=== PATIENT | female | born 1980 | race Caucasian/White ===

== ENCOUNTER 2017-11-28 18:56 | Emergency (ER) | payer OTHER ==
[~2017-11-28] VITALS: Ht 180.3 cm; Wt 113.4 kg
[~2017-11-28 18:56] MED LIST: ACETAMINOPHEN-1 EAC1 PO; BACTRIM DS TAB1 EACH PO; BIRTH CONTROL; CELEXA 10 MG TA10 M1 PO; CELEXA40 MG PO; FLEXERIL PO; NORCO 5-325 TA1 EACH PO
[2017-11-28] MEDS ORDERED: NAPROSYN500 MG PO (20:41)
[2017-11-28 20:53] VITALS: BP 174/100
== END 2017-11-28 20:54 | disposition home or self-care (01) ==
LOC: M.ERS 18:56
DX: M79.672 Pain in left foot (principal)

== ENCOUNTER 2018-07-16 22:36 | Emergency (ER) | payer OTHER ==
[~2018-07-16] VITALS: Ht 182.9 cm; Wt 113.4 kg
[~2018-07-16 22:36] MED LIST changes: +NAPROSYN500 MG PO
[2018-07-16 23:44] VITALS: BP 151/79
== END 2018-07-16 23:45 | disposition home or self-care (01) ==
LOC: M.ERS 22:36
DX: S99.821A Other specified injuries of right foot, initial encounter (principal); G89.29 Other chronic pain; M54.5 Low back pain; F32.9 Major depressive disorder, single episode, unspecified; W18.39XA Other fall on same level, initial encounter; Y93.89 Activity, other specified; Y92.89 Other specified places as the place of occurrence of the external cause; Y99.8 Other external cause status

== ENCOUNTER 2019-08-09 20:03 | Emergency (ER) | payer OTHER ==
[~2019-08-09] VITALS: Ht 182.9 cm; Wt 113.4 kg
[2019-08-09 20:12] VITALS: BP 152/91
[2019-08-09] MEDS ORDERED: LISINOPRIL2.5 MG PO (20:15)
[2019-08-09] MEDS ORDERED: OXYCODONE HCL10 MG PO (20:16)
[2019-08-09] MEDS ORDERED: TRAZODONE 150150 M1 PO (20:16)
[2019-08-09] MEDS ORDERED: TIZANIDINE HCL4 M1 PO (20:18)
[2019-08-09] MEDS ORDERED: CENTANY30 GM TOP (20:20)
[2019-08-09] MEDS ORDERED: NAPROSYN500 MG PO (20:20)
== END 2019-08-09 20:41 | disposition home or self-care (01) ==
LOC: M.ERS 20:03
DX: T22.10XA Burn of first degree of shoulder and upper limb, except wrist and hand, unspecified site, initial encounter (principal); T31.0 Burns involving less than 10% of body surface; X19.XXXA Contact with other heat and hot substances, initial encounter; Y93.89 Activity, other specified; Y92.89 Other specified places as the place of occurrence of the external cause; Y99.8 Other external cause status; F32.9 Major depressive disorder, single episode, unspecified

== ENCOUNTER 2020-08-03 22:01 | Emergency (ER) | payer OTHER ==
[~2020-08-03] VITALS: Ht 180.3 cm; Wt 113.4 kg
[~2020-08-03 22:01] MED LIST changes: +CENTANY30 GM TOP; +LISINOPRIL2.5 MG PO; +OXYCODONE HCL10 MG PO; +TIZANIDINE HCL4 M1 PO; +TRAZODONE 150150 M1 PO
[2020-08-03] MEDS ORDERED: DULOXETINE HCL20 MG PO (22:15)
[2020-08-03 23:32] VITALS: BP 121/70
[2020-08-03] MEDS ORDERED: VANOS60 GM TOP (23:32)
== END 2020-08-03 23:33 | disposition home or self-care (01) ==
LOC: M.ERS 22:01
DX: T25.132A Burn of first degree of left toe(s) (nail), initial encounter (principal); T31.0 Burns involving less than 10% of body surface; I10 Essential (primary) hypertension; X19.XXXA Contact with other heat and hot substances, initial encounter; Y93.89 Activity, other specified; Y92.89 Other specified places as the place of occurrence of the external cause; Y99.8 Other external cause status